=== PATIENT | male | born 1940 | race Caucasian/White ===

== ENCOUNTER 2022-03-31 18:16 | Emergency (ER) | payer MEDICARE, BC ==
[2022-03-31] MEDS ORDERED: Acetaminophen 500 MG TAB ONE (18:51)
[2022-03-31 19:40] LABS: ALT (SGPT) 15 U/L (8-55); AST (SGOT) 17 U/L (5-34); Albumin 3.9 g/dL (3.4-4.8); Alkaline Phosphatase 99 U/L (40-110); Anion Gap 13 mmol/L (10-20); BUN (Urea Nitrogen) 26 mg/dL (8.4-25.7); Bilirubin, Total 0.3 mg/dL (0.2-1.2); Calc. Creatinine Clearance 0 mL/min (70-130); Calcium 8.8 mg/dL (7.8-10.44); Carbon Dioxide 26 mmol/L (23-31); Chloride 105 mmol/L (98-107); Estimated GFR 66; Globulin 2.7 g/dL (2.4-3.5); Glucose 130 mg/dL (83-110); Potassium 4.5 mmol/L (3.5-5.1); Protein, Total 6.6 g/dL (5.8-8.1); Sodium 139 mmol/L (136-145)
[2022-03-31 19:41] LABS: SARS-CoV-2 NAA Rapid Test DETECTED (NotDetected)
[2022-03-31 20:37] LABS: Bilirubin Negative (Negative); Blood, Urine Negative (Negative); Clarity Clear (Clear); Glucose, Urine (Dipstick) Normal (Negative); Ketone, Urine Negative (Negative); Leukocyte Negative Leu/uL (Negative); Nitrite Negative (Negative); Protein, Urine (Dipstick) Negative (Neg-Trace); Specific Gravity, Urine 1.027 (1.002-1.036); Urobilinogen Normal mg/dL (Less than 2); pH, Urine 6.5 (5.0-9.0)
== END 2022-03-31 20:57 | disposition home or self-care (01) ==
LOC: ERS 18:16
DX: U07.1 COVID-19 (principal); E78.5 Hyperlipidemia, unspecified
CPT/HCPCS: 71045; 80053; 81003; 83605; 83880; 84484; 87040; 87086; 93005; U0002; 36415; 51701